=== PATIENT | female | born 1935 | race Caucasian/White ===

== ENCOUNTER → 2019-11-22 | Outpatient (CLI) | payer MEDICARE, BC ==
--- NOTE | 2019-11-22 17:01 | RAD ---
Bone mineral density exam History: Screening, takes calcium supplement Comparison: None Findings: Bone mineral density examination utilizing DEXA was performed. Right hip bone mineral density of 818 mg/cm2 corresponds with a T score -1.1, Z score 1.5. The bone mineral density of the lumbar spine was 1.477 g/cm2 which corresponds with a T-score of 2.5, Z score 4.8. By [employer] on Osteoporosis criteria, a T score of 0 to-1 SD is considered to be within normal limits. A T score of -1 to -2.5 SD is considered osteopenia. A T score less than -2.5 SD is considered osteoporosis Impression: 1. There is osteopenia of the right hip. Bone mineral density of the lumbar spine is within normal limits although may be artificially elevated due to the presence of degenerative change. Electronically signed by: Joel Acuna MD (11/22/2019 4:58 PM) [id number]
== END | disposition home or self-care (01) ==
LOC: DXRAD 09:38
PROVIDERS: ATTEND Specialist
DX: Z13.820 Encounter for screening for osteoporosis (principal); M85.88 Other specified disorders of bone density and structure, other site
CPT/HCPCS: 77080